=== PATIENT | female | born 1965 | race Caucasian/White ===

== ENCOUNTER 2016-06-13 09:03 | Emergency (ER) | payer SELFPAY ==
[2016-06-13] MEDS ORDERED: Meperidine SYRINGE* 50 MG/ML IV ONE (09:36)
[2016-06-13] MEDS ORDERED: Ondansetron INJ* 2 MG/ML VIAL IV ONE (09:36)
[2016-06-13] MEDS: NS 0.9% 1000 ML* 2,000 ML IV ONE ×2 (09:41→09:50)
[2016-06-13 09:49] LABS: Hematocrit 38 % (35-47); Hemoglobin 12.1 g/dl (12.0-16.0); Mean Corpuscular HGB Conc 32 g/dl (31-36); Mean Corpuscular Hemoglobin 24 pg (27-31); Mean Corpuscular Volume 74 fL (80-97); Mean Platelet Volume 9 um3 (7.4-10.4); Red Blood Count 5.15 10^6/ul (4.0-5.4); Red Cell Distribution Width 16 % (10.5-15); White Blood Count 13.8 10^3/ul (3.5-10.8)
[2016-06-13 09:59] LABS: Add Diff/Slide Review? Slide Review Added; Comments Flag Yes
[2016-06-13 10:04] LABS: C Reactive Protein 6.32 mg/L (< 5.00); Calcium 9.6 mg/dL (8.6-10.3); EGFR African American 95.5 (>60); EGFR Non-African American 74.3 (>60); Globulin 3.1 g/dL (2-4); Total Bilirubin 0.5 mg/dL (0.2-1.0); Total Protein 7.1 g/dL (6.4-8.9)
--- NOTE | 2016-06-13 10:53 | RAD ---
Indication: RIGHT upper quadrant pain. Comparison: None. Technique: RIGHT upper quadrant ultrasound. Report: 15.9 cm cephalocaudal liver is mildly echogenic consistent with fatty infiltration. No focal hepatic lesions or biliary dilatation. Appropriate direction flow documented in the portal and hepatic veins. 2.8 mm common bile duct. Adequately distended gallbladder with normal 1.3 mm wall is without pathologic finding. Negative for sonographic Llamas's sign. The pancreatic tail is largely obscured due to bowel gas with the visualized pancreas unremarkable. Negative for ascites. 12.6 x 4.1 x 5.5 cm RIGHT kidney is remarkable for a midpole column of Alexx, a normal variant. Negative for focal RIGHT renal lesions or hydronephrosis. Normal cortical echogenicity. IMPRESSION: 1. Fatty infiltration of the liver. 2. No evidence for gallbladder pathology.
[2016-06-13 11:10] LABS: Urine Bacteria Absent (Absent); Urine Bilirubin Negative (Negative); Urine Glucose Negative (Negative); Urine Nitrite Negative (Negative)
--- NOTE | 2016-06-13 13:06 | RAD ---
INDICATION: Epigastric pain. COMPARISON: Correlation is made with a prior right upper quadrant ultrasound of the same day. TECHNIQUE: A CT scan of the abdomen and pelvis was performed without intravenous or oral contrast. Contiguous axial sections were obtained from the lung bases through the symphysis pubis. Images were reconstructed in the coronal and sagittal planes. FINDINGS: The lung bases are clear. No pleural effusion is present. The liver and spleen are within normal limits in size without significant focal abnormality on this noncontrast study. No calcified gallstones are seen. The pancreas appears to be within normal limits in size. The adrenal glands and kidneys are normal in size. No renal calculi or hydronephrosis is seen. The aorta is normal in caliber without significant calcific plaque. There is interstitial stranding present in the mesenteric fat in the upper and mid abdomen with mildly prominent mesenteric and to a lesser extent retroperitoneal lymph nodes in this region suggestive of panniculitis which is age indeterminate. The stomach, small and large bowel appear nondistended. The appendix is not visualized. There is mild descending and sigmoid diverticulosis without evidence for diverticulitis. The uterus is anteverted and normal in size. No free intraperitoneal air or fluid is seen. No significant focal osseous abnormality is seen. IMPRESSION: FINDINGS SUGGESTIVE OF PANNICULITIS, AGE INDETERMINATE.
[2016-06-13 14:17] VITALS: BP 151/82
--- NOTE | 2016-06-14 14:34 | ED ---
Konstantin Muhammad Matthew, scribed for Percy Watson MD on 06/13/16 at 1006 . Abdominal Pain/Female - HPI Summary HPI Summary: A 51 y/o female presents to the ED with intermittently diffuse upper abdominal pain since 03:00. The pain comes every 15 minutes. Associated symptoms include mild nausea. She denies diarrhea. Currently, the patient's pain has alleviated. She last ate at 20:00 last night, which consisted of chicken and rice. She has been outside raking her lawn recently for 2 hours at a time. She took compazine [employer] without relief. No SHx. - History of Current Complaint Chief Complaint: EDAbdPain Stated Complaint: ABD CRAMPING Time Seen by Provider: 06/13/16 09:10 Hx Obtained From: Patient ?: No Onset/Duration: Lasting Hours, Still Present Timing: Frequency Of Episodes - every 15 minutes Severity Initially: Moderate Severity Currently: Moderate Pain Intensity: 8 Pain Scale Used: 0-10 Numeric Location: Diffuse - upper abdominal pain Radiates: No Alleviating Factor(s): Nothing Associated Signs and Symptoms: Positive: Nausea. Negative: Vomiting, Diarrhea Allergies/Adverse Reactions: Allergies Allergy/AdvReac Type Severity Reaction Status Date / Time Amoxicillin Allergy Hives Verified 06/13/16 09:09 PMH/Surg Hx/FS Hx/Imm Hx Previously Healthy: Yes Musculoskeletal History: Denies: Hx Scoliosis Neurological History: Denies: Hx Headaches, Other Neuro Impairments/Disorders - Cancer History Hx Chemotherapy: No Hx Radiation Therapy: No Infectious Disease History: No Infectious Disease History: Denies: Traveled Outside the [place] in Last 30 Days - Family History Family History: No FHx of breast CA - Social History Alcohol Use: Rare Substance Use Type: Reports: None Smoking Status (MU): Never Smoked Tobacco Review of Systems Constitutional: Negative Eyes: Negative ENT: Negative Cardiovascular: Negative Respiratory: Negative Positive: Abdominal Pain - diffuse upper abdominal pain , Nausea. Negative: Vomiting, Diarrhea Genitourinary: Negative Musculoskeletal: Negative Skin: Negative Neurological: Negative Psychological: Normal All Other Systems Reviewed And Are Negative: Yes Physical Exam Triage Information Reviewed: Yes Vital Signs On Initial Exam: Initial Vitals Temp Pulse Resp BP Pulse Ox 97.7 F 77 15 134/71 98 06/13/16 09:06 06/13/16 09:06 06/13/16 09:06 06/13/16 09:06 06/13/16 09:06 Vital Signs Reviewed: Yes Appearance: Positive: Well-Appearing, No Pain Distress Skin: Positive: Warm, Dry Head/Face: Positive: Normal Head/Face Inspection Eyes: Positive: EOMI, [place] ENT: Positive: Normal ENT inspection Neck: Positive: Supple, Nontender, No Lymphadenopathy Respiratory/Lung Sounds: Positive: Clear to Auscultation, Breath Sounds Present Cardiovascular: Positive: RRR Abdomen Description: Positive: Other: - mildly positive story's sign; mild RUQ tenderness Bowel Sounds: Positive: Present Musculoskeletal: Positive: Strength/ROM Intact Neurological: Positive: Alert, Oriented to Person Place, Time Psychiatric: Positive: Affect/Mood Appropriate Diagnostics - Vital Signs Vital Signs Temp Pulse Resp BP Pulse Ox 06/13/16 09:06 97.7 F 77 15 134/71 98 - Laboratory Lab Results: Lab Results 06/13/16 06/13/16 06/13/16 Range/Units 09:43 09:43 09:43 WBC 13.8 H (3.5-10.8) 10^3/ul RBC 5.15 (4.0-5.4) 10^6/ul Hgb 12.1 (12.0-16.0) g/dl Hct 38 (35-47) % MCV 74 L (80-97) fL MCH 24 L (27-31) pg MCHC 32 (31-36) g/dl RDW 16 H (10.5-15) % Plt Count 182 (150-450) 10^3/ul MPV 9 (7.4-10.4) um3 Neut % (Auto) 78.3 (38-83) % Lymph % (Auto) 14.3 L (25-47) % [place] % (Auto) 5.7 (1-9) % Eos % (Auto) 1.1 (0-6) % Baso % (Auto) 0.6 (0-2) % Absolute Neuts (auto) 10.8 H (1.5-7.7) 10^3/ul Absolute Lymphs (auto) 2.0 (1.0-4.8) 10^3/ul Absolute Monos (auto) 0.8 (0-0.8) 10^3/ul Absolute Eos (auto) 0.1 (0-0.6) 10^3/ul Absolute Basos (auto) 0.1 (0-0.2) 10^3/ul Absolute Nucleated RBC 0.02 10^3/ul Nucleated RBC % 0.1 Sodium 136 (133-145) mmol/L Potassium 4.0 (3.5-5.0) mmol/L Chloride 104 (101-111) mmol/L Carbon Dioxide 26 (22-32) mmol/L Anion Gap 6 (2-11) mmol/L BUN 17 (6-24) mg/dL Creatinine 0.81 (0.51-0.95) mg/dL Est GFR ( Amer) 95.5 (>60) Est GFR (Non-Af Amer) 74.3 (>60) BUN/Creatinine Ratio 21.0 H (8-20) Glucose 109 H (70-100) mg/dL Lactic Acid 1.3 (0.5-2.0) mmol/L Calcium 9.6 (8.6-10.3) mg/dL Total Bilirubin 0.50 (0.2-1.0) mg/dL AST 18 (13-39) U/L ALT 18 (7-52) U/L Alkaline Phosphatase 112 H (34-104) U/L C-Reactive Protein 6.32 H (< 5.00) mg/L Total Protein 7.1 (6.4-8.9) g/dL Albumin 4.0 (3.2-5.2) g/dL Globulin 3.1 (2-4) g/dL Albumin/Globulin Ratio 1.3 (1-3) Lipase 14 (11.0-82.0) U/L Urine Color Urine Appearance Urine pH (5-9) Ur Specific [place] (1.010-1.030) Urine Protein (Negative) Urine Ketones (Negative) Urine Blood (Negative) Urine Nitrate (Negative) Urine Bilirubin (Negative) Urine Urobilinogen (Negative) Ur Leukocyte Esterase (Negative) Urine WBC (Auto) (Absent) Urine RBC (Auto) (Absent) Ur Squamous Epith Cells (Absent) Urine Bacteria (Absent) Urine Glucose (Negative) 06/13/16 Range/Units 10:53 WBC (3.5-10.8) 10^3/ul RBC (4.0-5.4) 10^6/ul Hgb (12.0-16.0) g/dl Hct (35-47) % MCV (80-97) fL MCH (27-31) pg MCHC (31-36) g/dl RDW (10.5-15) % Plt Count (150-450) 10^3/ul MPV (7.4-10.4) um3 Neut % (Auto) (38-83) % Lymph % (Auto) (25-47) % [place] % (Auto) (1-9) % Eos % (Auto) (0-6) % Baso % (Auto) (0-2) % Absolute Neuts (auto) (1.5-7.7) 10^3/ul Absolute Lymphs (auto) (1.0-4.8) 10^3/ul Absolute Monos (auto) (0-0.8) 10^3/ul Absolute Eos (auto) (0-0.6) 10^3/ul Absolute Basos (auto) (0-0.2) 10^3/ul Absolute Nucleated RBC 10^3/ul Nucleated RBC % Sodium (133-145) mmol/L Potassium (3.5-5.0) mmol/L Chloride (101-111) mmol/L Carbon Dioxide (22-32) mmol/L Anion Gap (2-11) mmol/L BUN (6-24) mg/dL Creatinine (0.51-0.95) mg/dL Est GFR ( Amer) (>60) Est GFR (Non-Af Amer) (>60) BUN/Creatinine Ratio (8-20) Glucose (70-100) mg/dL Lactic Acid (0.5-2.0) mmol/L Calcium (8.6-10.3) mg/dL Total Bilirubin (0.2-1.0) mg/dL AST (13-39) U/L ALT (7-52) U/L Alkaline Phosphatase (34-104) U/L C-Reactive Protein (< 5.00) mg/L Total Protein (6.4-8.9) g/dL Albumin (3.2-5.2) g/dL Globulin (2-4) g/dL Albumin/Globulin Ratio (1-3) Lipase (11.0-82.0) U/L Urine Color Yellow Urine Appearance Cloudy Urine pH 7.0 (5-9) Ur Specific [place] 1.015 (1.010-1.030) Urine Protein Negative (Negative) Urine Ketones Negative (Negative) Urine Blood Negative (Negative) Urine Nitrate Negative (Negative) Urine Bilirubin Negative (Negative) Urine Urobilinogen Negative (Negative) Ur Leukocyte Esterase Trace H (Negative) Urine WBC (Auto) Trace(0-5/hpf) (Absent) Urine RBC (Auto) Absent (Absent) Ur Squamous Epith Cells Present H (Absent) Urine Bacteria Absent (Absent) Urine Glucose Negative (Negative) Result Diagrams: 06/13/16 09:43 06/13/16 09:43 Lab Statement: Any lab studies that have been ordered have been reviewed, and results considered in the medical decision making process. - CT A/P CT CT Interpretation: Positive (See Comments) - IMPRESSION: FINDINGS SUGGESTIVE OF PANNICULITIS, AGE INDETERMINATE. CT Interpretation Completed By: Radiologist - Ultrasound No standard instances Ultrasound Interpretation: No Acute Changes - IMPRESSION: 1. Fatty infiltration of the liver. 2. No evidence for gallbladder pathology. Ultrasound Interpretation Completed By: Radiologist Abdominal Pain Fem Course/Dx - Course Course Of Treatment: Ms. Farooq presented with a peristaltic-type epigastric pain and was found to have a mild leukocytosis and ALP elevation. GB U/S was negative and a CT showed mesenteric panniculitis. I recommended close F/U and symptomatic treatment. - Diagnoses Provider Diagnoses: Mesenteric panniculitis - Provider Notifications Discussed Care Of Patient With: Dr. Romero (Surgery) at 13:15 -- Notified of patient's history and will admit the patient. Dr. Tang (GI) at 13:37 -- Notified of patient's history. Discharge - Discharge Plan Condition: Stable Disposition: HOME Prescriptions: HYDROcodone/ACETAMIN 5-325 MG* [[place] 5-325 TAB*] 1 tab PO Q6H PRN #20 tab MDD 4 PRN Reason: Pain Patient Education Materials: Hydrocodone/Acetaminophen (By mouth), Abdominal Pain (ED) Referrals: [facility] [place] PHYSICIAN REFERRAL [Outside] Additional Instructions: Please follow-up with a primary care physician in 3-4 days if the symptoms have not improved. Take ibuprofen as directed on the medication for pain. The documentation as recorded by the Konstantin oro Matthew accurately reflects the service I personally performed and the decisions made by , Percy Watson MD.
== END 2016-06-13 14:17 | disposition home or self-care (01) ==
LOC: ED 09:03
DX: K65.4 Sclerosing mesenteritis (principal); R10.10 Upper abdominal pain, unspecified; R11.0 Nausea
CPT/HCPCS: 36415; 74176; 76705; 80053; 81003; 81015; 83605; 83690; 85025; 86140; 87086; 96374; 99283; J2405

== ENCOUNTER 2018-07-22 21:21 | Emergency (ER) | payer BC ==
[2018-07-22] MEDS ORDERED: NS 0.9% 1000 ML** 1,000 ML IV.FLUID IV ONE (22:18)
[2018-07-22 22:46] LABS: ABS Eosinophils 0.1 10^3/ul (0-0.6); ABS Monocytes 0.2 10^3/ul (0-0.8); ABS Neutrophils 11.1 10^3/ul (1.5-7.7); Eosinophil % 0.5 %; Hematocrit 37 % (35-47); Hemoglobin 12.2 g/dL (12.0-16.0); Lymphocyte % 15.2 %; Mean Corpuscular HGB Conc 33 g/dL (31-36); Mean Corpuscular Hemoglobin 25 pg (27-31); Mean Corpuscular Volume 76 fL (80-97); Mean Platelet Volume 9.4 fL (7.4-10.4); Platelet Count 168 10^3/uL (150-450); Red Blood Count 4.89 10^6 /uL (3.70-4.87); Red Cell Distribution Width 15 % (10-15); White Blood Count 13.5 10^3/uL (3.5-10.8)
[2018-07-22 22:54] LABS: Activated Partial Thrombo Time 28.6 seconds (26.0-38.0); INR 0.96 (0.82-1.09)
[2018-07-22 23:01] LABS: Albumin 4.1 g/dL (3.2-5.2); Albumin/Globulin Ratio 1.5 (1-3); BUN/Creatinine Ratio 31.4 (8-20); C Reactive Protein 6.09 mg/L (<8.01); Calcium 9.2 mg/dL (8.6-10.3); EGFR African American 83.2 (>60); EGFR Non-African American 68.8 (>60); Globulin 2.8 g/dL (2-4); Potassium 3.7 mmol/L (3.5-5.0); Total Bilirubin 0.4 mg/dL (0.2-1.0); Total Protein 6.9 g/dL (6.4-8.9)
[2018-07-22 23:49] LABS: Urine Appearance Cloudy; Urine Bilirubin Negative (Negative); Urine Blood Negative (Negative); Urine Color Yellow; Urine Glucose Negative (Negative); Urine Ketones Negative (Negative); Urine Nitrite Negative (Negative); Urine Protein Negative (Negative); Urine Specific Gravity 1.017 (1.010-1.030); Urine Urobilinogen Negative (Negative)
--- NOTE | 2018-07-22 23:54 | ED ---
Complex/Multi-Sys Presentation - HPI Summary HPI Summary: 53-year-old female presents with sudden onset of diarrhea today. She went to gym and afterwards had an episode diarrhea. States immediately afterwards she felt that she was extremely cold and her whole body shook. She denies any seizure-like activity. states she did mumble something but was fully coherent and did not pass out. Denies any chest pain shortness breath. No headache. Denies any bowel pain. No nausea vomiting. Denies any symptoms currently except for being a little bit cold. Has no medical conditions. - History Of Current Complaint Chief Complaint: EDFluSymptoms Time Seen by Provider: 07/22/18 22:17 - Allergies/Home Medications Allergies/Adverse Reactions: Allergies Allergy/AdvReac Type Severity Reaction Status Date / Time MS Amoxicillin [Amoxicillin] Allergy Hives Verified 07/22/18 21:29 PMH/Surg Hx/FS Hx/Imm Hx Endocrine/Hematology History: Denies: Hx Anticoagulant Therapy Cardiovascular History: Denies: Hx Hypertension Musculoskeletal History: Denies: Hx Scoliosis Neurological History: Denies: Hx Headaches, Other Neuro Impairments/Disorders - Cancer History Hx Chemotherapy: No Hx Radiation Therapy: No Infectious Disease History: No Infectious Disease History: Denies: Traveled Outside the [place] in Last 30 Days - Family History Known Family History: Positive: Non-Contributory - Social History Alcohol Use: Weekly Substance Use Type: Reports: None Smoking Status (MU): Never Smoked Tobacco Review of Systems Positive: Fever, Chills, Fatigue Negative: Chest Pain Negative: Shortness Of Breath Positive: Diarrhea. Negative: Abdominal Pain, Vomiting, Nausea All Other Systems Reviewed And Are Negative: Yes Physical Exam Triage Information Reviewed: Yes Vital Signs On Initial Exam: Initial Vitals Temp Pulse Resp BP Pulse Ox 100.9 F 99 16 169/91 97 07/22/18 21:27 07/22/18 21:27 07/22/18 21:27 07/22/18 21:27 07/22/18 21:27 Vital Signs Reviewed: Yes Appearance: Positive: Well-Appearing Skin: Positive: Warm, Dry Head/Face: Positive: Normal Head/Face Inspection Eyes: Positive: Normal, EOMI, [place], Conjunctiva Clear ENT: Positive: Normal ENT inspection, Pharynx normal, TMs normal Neck: Positive: Supple, Nontender, No Lymphadenopathy. Negative: Nuchal Rigidity Respiratory/Lung Sounds: Positive: Clear to Auscultation, Breath Sounds Present Cardiovascular: Positive: Normal, RRR Abdomen Description: Positive: Nontender, Soft Bowel Sounds: Positive: Present Musculoskeletal: Positive: Normal Neurological: Positive: Sensory/Motor Intact, Alert, Oriented to Person Place, Time, CN Intact II-III Psychiatric: Positive: Normal Diagnostics - Vital Signs Vital Signs Temp Pulse Resp BP Pulse Ox 07/22/18 22:46 99.1 F 84 16 119/53 98 07/22/18 22:45 119/53 07/22/18 21:27 100.9 F 99 16 169/91 97 - Laboratory Lab Results: Lab Results 07/22/18 07/22/18 07/22/18 Range/Units 22:25 22:25 22:25 WBC 13.5 H (3.5-10.8) 10^3/uL RBC 4.89 H (3.70-4.87) 10^6 /uL Hgb 12.2 (12.0-16.0) g/dL Hct 37 (35-47) % MCV 76 L (80-97) fL MCH 25 L (27-31) pg MCHC 33 (31-36) g/dL RDW 15 (10-15) % Plt Count 168 (150-450) 10^3/uL MPV 9.4 (7.4-10.4) fL Neut % (Auto) 82.4 % Lymph % (Auto) 15.2 % [place] % (Auto) 1.6 % Eos % (Auto) 0.5 % Baso % (Auto) 0.3 % Absolute Neuts (auto) 11.1 H (1.5-7.7) 10^3/ul Absolute Lymphs (auto) 2.0 (1.0-4.8) 10^3/ul Absolute Monos (auto) 0.2 (0-0.8) 10^3/ul Absolute Eos (auto) 0.1 (0-0.6) 10^3/ul Absolute Basos (auto) 0.0 (0-0.2) 10^3/ul Absolute Nucleated RBC 0.0 10^3/ul Nucleated RBC % 0.0 INR (Anticoag Therapy) 0.96 (0.82-1.09) APTT 28.6 (26.0-38.0) seconds Sodium 140 (135-145) mmol/L Potassium 3.7 (3.5-5.0) mmol/L Chloride 106 (101-111) mmol/L Carbon Dioxide 24 (22-32) mmol/L Anion Gap 10 (2-11) mmol/L BUN 27 H (6-24) mg/dL Creatinine 0.86 (0.51-0.95) mg/dL Est GFR ( Amer) 83.2 (>60) Est GFR (Non-Af Amer) 68.8 (>60) BUN/Creatinine Ratio 31.4 H (8-20) Glucose 120 H (70-100) mg/dL Lactic Acid (0.5-2.0) mmol/L Calcium 9.2 (8.6-10.3) mg/dL Total Bilirubin 0.40 (0.2-1.0) mg/dL AST 18 (13-39) U/L ALT 15 (7-52) U/L Alkaline Phosphatase 123 H (34-104) U/L Troponin I 0.00 (<0.04) ng/mL C-Reactive Protein 6.09 (<8.01) mg/L Total Protein 6.9 (6.4-8.9) g/dL Albumin 4.1 (3.2-5.2) g/dL Globulin 2.8 (2-4) g/dL Albumin/Globulin Ratio 1.5 (1-3) Urine Color Urine Appearance Urine pH (5-9) Ur Specific [place] (1.010-1.030) Urine Protein (Negative) Urine Ketones (Negative) Urine Blood (Negative) Urine Nitrate (Negative) Urine Bilirubin (Negative) Urine Urobilinogen (Negative) Ur Leukocyte Esterase (Negative) Urine Glucose (Negative) 07/22/18 07/22/18 Range/Units 22:25 23:40 WBC (3.5-10.8) 10^3/uL RBC (3.70-4.87) 10^6 /uL Hgb (12.0-16.0) g/dL Hct (35-47) % MCV (80-97) fL MCH (27-31) pg MCHC (31-36) g/dL RDW (10-15) % Plt Count (150-450) 10^3/uL MPV (7.4-10.4) fL Neut % (Auto) % Lymph % (Auto) % [place] % (Auto) % Eos % (Auto) % Baso % (Auto) % Absolute Neuts (auto) (1.5-7.7) 10^3/ul Absolute Lymphs (auto) (1.0-4.8) 10^3/ul Absolute Monos (auto) (0-0.8) 10^3/ul Absolute Eos (auto) (0-0.6) 10^3/ul Absolute Basos (auto) (0-0.2) 10^3/ul Absolute Nucleated RBC 10^3/ul Nucleated RBC % INR (Anticoag Therapy) (0.82-1.09) APTT (26.0-38.0) seconds Sodium (135-145) mmol/L Potassium (3.5-5.0) mmol/L Chloride (101-111) mmol/L Carbon Dioxide (22-32) mmol/L Anion Gap (2-11) mmol/L BUN (6-24) mg/dL Creatinine (0.51-0.95) mg/dL Est GFR ( Amer) (>60) Est GFR (Non-Af Amer) (>60) BUN/Creatinine Ratio (8-20) Glucose (70-100) mg/dL Lactic Acid 1.5 (0.5-2.0) mmol/L Calcium (8.6-10.3) mg/dL Total Bilirubin (0.2-1.0) mg/dL AST (13-39) U/L ALT (7-52) U/L Alkaline Phosphatase (34-104) U/L Troponin I (<0.04) ng/mL C-Reactive Protein (<8.01) mg/L Total Protein (6.4-8.9) g/dL Albumin (3.2-5.2) g/dL Globulin (2-4) g/dL Albumin/Globulin Ratio (1-3) Urine Color Yellow Urine Appearance Cloudy Urine pH 6.0 (5-9) Ur Specific [place] 1.017 (1.010-1.030) Urine Protein Negative (Negative) Urine Ketones Negative (Negative) Urine Blood Negative (Negative) Urine Nitrate Negative (Negative) Urine Bilirubin Negative (Negative) Urine Urobilinogen Negative (Negative) Ur Leukocyte Esterase Negative (Negative) Urine Glucose Negative (Negative) Result Diagrams: 07/22/18 22:25 07/22/18 22:25 Lab Statement: Any lab studies that have been ordered have been reviewed, and results considered in the medical decision making process. - Radiology chest Radiology Interpretation Completed By: ED Physician Summary of Radiographic Findings: no pneumonia - EKG No standard instances Cardiac Rate: NL EKG Rhythm: Sinus Rhythm Summary of EKG Findings: sinus rhythm Re-Evaluation - Re-Evaluation First Eval Re-Evaluation Time: 00:10 Change: Improved Comment: feeling better Complex Multi-Symp Course/Dx Course Of Treatment: 53-year-old female presents with sudden onset of diarrhea today. She went to gym and afterwards had an episode diarrhea. States immediately afterwards she felt that she was extremely cold and her whole body shook. She denies any seizure-like activity. states she did mumble something but was fully coherent and did not pass out. Denies any chest pain shortness breath. No headache. Denies any bowel pain. No nausea vomiting. Denies any symptoms currently except for being a little bit cold. Has no medical conditions. On exam has normal neuro exam. Lungs clear auscultation. Abdomen soft nontender. White blood count elevated at 13. CRP normal. Urine normal. Chest x-ray read by me as normal. EKG shows sinus rhythm. gave fluids and feeling better. likely has viral syndrome. told follow up with primary. warned if anything changes to return. patient understand and agrees with plan. - Diagnoses Differential Diagnoses/HQI/PQRI: Metabolic Abnormality, Sepsis, Urinary Tract Infection Provider Diagnoses: Diarrhea, Chills Discharge - Sign-Out/Discharge Documenting (check all that apply): Patient Departure Patient Received Moderate/Deep Sedation with Procedure: No - Discharge Plan Condition: Good Disposition: HOME Patient Education Materials: Acute Diarrhea (ED) Referrals: Melissa Fraser MD [Primary Care Provider] - Additional Instructions: take tyenlol or ibuprofen as needed for fever follow up with primary Return to ED if develop severe abd pain, persistent fevers, or any new or worsening symptoms - Billing Disposition and Condition Condition: GOOD Disposition: Home
[2018-07-23 00:47] VITALS: BP 123/79
== END 2018-07-23 00:46 | disposition home or self-care (01) ==
LOC: ED 21:21
DX: R19.7 Diarrhea, unspecified (principal); R68.83 Chills (without fever); R07.89 Other chest pain; Z88.0 Allergy status to penicillin
CPT/HCPCS: 36415; 71045; 80053; 81003; 83605; 84484; 85025; 85610; 85730; 86140; 93005; 99282